=== PATIENT | female | born 1995 | race American Indian/Alaskan Native ===

== ENCOUNTER 2017-06-16 19:00 | Outpatient (CLI) | payer MEDICAID ==
[2017-06-16 19:44] VITALS: BP 118/70
--- NOTE | 2017-06-17 10:40 | Ultrasound Report ---
History: Decreased movement. Findings: Gestation: Single Amniotic Fluid: DIONNE = 13.6 cm Heart Rate: 153 BPM BIOPHYSICAL PROFILE: 2 - breathing movements 2 - movements 2 - posture and tone 2 - Qualitative amniotic fluid volume 8 - TOTAL SCORE OF POSSIBLE 8 Heart Rate (bpm) 166
--- NOTE | 2017-06-17 11:21 | Ultrasound Report ---
LIMITED OB ULTRASOUND: Decreased motion. Gestation: Santana DIONNE = 13.6 cm Heart Rate: 153 BPM Estimated gestational age 39 weeks 3 days.
== END 2017-06-16 22:40 | disposition home or self-care (01) ==
LOC: TRG 19:00 → LD 19:25 → TRG 22:40
PROVIDERS: ATTEND Obstetrics & Gynecology
DX: O36.8130 Decreased fetal movements, third trimester, not applicable or unspecified (principal); Z87.891 Personal history of nicotine dependence; Z3A.39 39 weeks gestation of pregnancy
CPT/HCPCS: 59025; 76815; 76819

== ENCOUNTER 2017-06-19 03:02 | Inpatient (IN) | payer MEDICAID ==
[2017-06-19] MEDS ORDERED: LACTATED RINGERS 1,000 ML ONE (03:29)
[2017-06-19] MEDS ORDERED: SUBLIMAZE IV PRN (04:35)
[2017-06-19] MEDS ORDERED: STADOL IV PRN (04:35)
[2017-06-19] MEDS ORDERED: POLYCILLIN/NS 2 GM/100 ML 2 GM/100 ML BAG IV ONE (04:40)
[2017-06-19] MEDS ORDERED: ePHEDrine SULFATE IV PRN (04:40)
[2017-06-19] MEDS ORDERED: MINERAL OIL PO PRN (04:40)
[2017-06-19] MEDS ORDERED: BRETHINE SUB-Q PRN (04:40)
[2017-06-19] MEDS ORDERED: BRETHINE IVP PRN (04:40)
[2017-06-19] MEDS ORDERED: XYLOCAINE 2% INFILTRATI ONE ×2 (04:40→07:10)
[2017-06-19] MEDS ORDERED: ZOFRAN IV PRN ×2 (04:40→07:36)
--- NOTE | 2017-06-19 04:44 | History and Physical Report ---
History of Present Illness Date of examination: 06/19/17 Date of admission: 06/19/17 03:29 Chief complaint: SROM History of present illness: Pt is a 22yo BF EDC 06/20/17; EGA 39 6/7 weeks presents to L&D complaining of RUC's q 3-4 mins after SROM clear fluid @ 0135. She received care at [facility], and course has been unremarkable. However records are not available and GBS is unknown. Past History Past Medical History: no pertinent history Past Surgical History: no surgical history Family/Genetic History: none Social history: no significant social history, single - Obstetrical History Expected Date of Delivery: 06/20/17 Actual Gestation: 39 Week(s) 6 Day(s) : 2 Medications and Allergies Allergies Allergy/AdvReac Type Severity Reaction Status Date / Time No Known Allergies Allergy Unverified 06/16/17 19:11 Home Medications Medication Instructions Recorded Confirmed Last Taken Type No Known Home Medications [No 06/19/17 06/19/17 Unknown History Reported Home Medications] Active Meds: Active Medications Butorphanol Tartrate (Stadol) 2 mg IV Q2H PRN PRN Reason: Labor Pain Ephedrine Sulfate (Ephedrine Sulfate) 10 mg IV Q2M PRN PRN Reason: Hypotension Stop: 06/19/17 04:45 Fentanyl (Sublimaze) 100 mcg IV Q2H PRN PRN Reason: Labor Pain Lactated Ringer's (Lactated Ringers) 1,000 mls @ 125 mls/hr IV DIRECT COLLIN Ampicillin Sodium (Polycillin/Ns 1 Gm/50 Ml) 1 gm in 50 mls @ 100 mls/hr IV Q4HR COLLIN PRN Reason: Protocol Ampicillin Sodium (Polycillin/Ns 2 Gm/100 Ml) 2 gm in 100 mls @ 100 mls/hr IV ONCE ONE PRN Reason: Protocol Stop: 06/19/17 05:39 Lactated Ringer's (Lactated Ringers) 1,000 mls @ 125 mls/hr IV DIRECT COLLIN Lidocaine (Xylocaine 2%) 20 ml INFILTRATI ONCE ONE Stop: 06/19/17 04:41 Mineral Oil (Mineral Oil) 30 ml PO QHS PRN PRN Reason: Constipation Ondansetron HCl (Zofran) 4 mg IV Q8H PRN PRN Reason: Nausea And Vomiting Review of Systems All systems: negative - Physical Exam Breasts: Positive: deferred Cardiovascular: Regular rate Lungs: Positive: Clear to auscultation Abdomen: Positive: normal appearance Genitourinary (Female): Positive: normal external genitalia Vagina: Positive: normal moisture Uterus: Positive: enlarged Extremities: Positive: normal - Obstetrical FHR: category 1 Uterine Contraction Monitor Mode: External Cervical Dilatation: 3 Cervical Effacement Percentage: 60 station: -1 Uterine Contraction Pattern: Irregular Uterine Tone Measurement Phase: Contraction Uterine Contraction Intensity: Moderate Results Result Diagrams: 06/19/17 04:15 All other labs normal. Assessment and Plan - Patient Problems (1) 39 weeks gestation of Onset Date: 06/19/17 Current Visit: Yes Status: Acute Plan to address problem: A: IUP @ 39 6/7 weeks in labor Unknown GBS P: Admit to L&D for expectant vaginal delivery IV Ampicillin
[2017-06-19] MEDS ORDERED: PITOCin/NS 30 UNIT/500ML 30 UNITS/500 ML BAG IV SCH ×2 (05:00)
[2017-06-19] MEDS ORDERED: LACTATED RINGERS 1,000 ML IV SCH ×2 (05:00)
[2017-06-19] MEDS ORDERED: PITOCin/NS 30 UNIT/500ML IV ONE (05:00)
[2017-06-19] MEDS ORDERED: PITOCin/NS 20 UNIT/1000ML DRIP 20 UNITS/1,000 ML BAG IV SCH ×2 (05:00→08:00)
[2017-06-19 06:11] LABS: Hematocrit 29.4 % (30.3-42.9); Hemoglobin 9.8 gm/dl (10.1-14.3); Mean Corpuscular HGB Conc 33 % (30-34); Mean Corpuscular Hemoglobin 31 pg (28-32); Mean Corpuscular Volume 93 fl (79-97); Platelet Count 256 K/mm3 (140-440); Red Blood Count 3.16 M/mm3 (3.65-5.03)
--- NOTE | 2017-06-19 07:32 | Procedure Note ---
OB Delivery Note - Delivery Date of Delivery: 06/19/17 Surgeon: KINDRA JAMES Estimated blood loss: 300cc - Vaginal Delivery presentation: vertex Delivery position: OA Intrapartum events: mult.variable deceleratio Delivery induction: none Delivery augmentation: rupture of membranes Delivery monitor: external FHT, external uterine Route of delivery: Delivery placenta: spontaneous Delivery cord: nuchal cord (x2), 3 umbilical vessels Episiotomy: none Delivery laceration: 2nd degree (perineal) Delivery repair: vicryl Anesthesia: local, intravenous Delivery comments: Infant delivered OA, tight nuchal cord x 2 reduced, and placed on mom's chest for [id number] bonding and delayed cord clamping. - Infant A at 1 minute: 8 at 5 minutes: 9 Infant Gender: Male (3059gms)
[2017-06-19] MEDS ORDERED: PHENERGAN PR PRN (07:36)
[2017-06-19] MEDS ORDERED: PHENERGAN PO PRN (07:36)
[2017-06-19] MEDS ORDERED: DULCOLAX PR PRN (08:00)
[2017-06-19] MEDS ORDERED: SODIUM CHLORIDE FLUSH SYRINGE 10 ML IV NR (08:00)
[2017-06-19] MEDS ORDERED: TYLENOL PO PRN (08:00)
[2017-06-19] MEDS ORDERED: BENADRYL PO PRN (08:00)
[2017-06-19] MEDS ORDERED: POLYCILLIN/NS 1 GM/50 ML 1 GM/50 ML BAG IV SCH (08:42)
[2017-06-19] MEDS ORDERED: PITOCin/NS 20 UNIT/1000ML DRIP IV ONE (09:00)
[2017-06-19 09:52] LABS: HIV-1 Antigen p24 Non React (Non React); HIVR-1/2 Ab Non React (Non React)
[2017-06-19] MEDS: TUCKS PAD TP PRN (09:56)
[2017-06-19] MEDS ORDERED: LANSINOH TP PRN (10:00)
[2017-06-19] MEDS ORDERED: NORCO 5/325 PO PRN (10:00)
[2017-06-19] MEDS: PRENATAL VITAMIN PO SCH (10:51)
[2017-06-19] MEDS: COLACE PO SCH ×2 (10:52→21:43)
[2017-06-19] MEDS: FEOSOL PO SCH ×2 (10:52→21:43)
[2017-06-19] MEDS: MOTRIN PO SCH ×2 (12:50→18:10)
[2017-06-19 19:51] LABS: Hematocrit 21.5 % (30.3-42.9); Hemoglobin 6.8 gm/dl (10.1-14.3)
[2017-06-19] MEDS ORDERED: MILK OF MAGNESIA PO PRN (22:00)
[2017-06-20] MEDS: MOTRIN PO SCH ×5 (00:34→18:20)
[2017-06-20] MEDS ORDERED: BOOSTRIX IM ONE ×2 (06:05→07:36)
--- NOTE | 2017-06-20 10:42 | Progress Note ---
Assessment and Plan - Patient Problems (1) 39 weeks gestation of Onset Date: 06/19/17 Current Visit: Yes Status: Resolved (2) (normal spontaneous vaginal delivery) Onset Date: 06/20/17 Current Visit: Yes Status: Resolved Plan to address problem: A: S/P - PPD #1 Doing well Asymptomatic anemia - stable P: May go home tomorrow (3) Acute blood loss anemia Onset Date: 06/20/17 Current Visit: Yes Status: Resolved Subjective - Subjective Date of service: 06/20/17 Principal diagnosis: s/p - PPD #1 Interval history: Pt is feeling well without complaints. Bleeding improved. She denies dizziness or SOB. Patient reports: appetite normal, voiding normally, pain well controlled, flatus , ambulating normally : doing well, nursing well Objective - Vital Signs Latest vital signs: Vital Signs Temp Pulse Resp BP BP Pulse Ox 06/20/17 07:31 98.4 F 87 18 121/79 98 06/20/17 06:15 16 06/20/17 01:34 16 06/20/17 00:34 16 06/20/17 00:00 98.2 F 76 20 130/72 06/19/17 20:05 98.2 F 76 18 122/68 06/19/17 16:04 98.8 F 78 20 120/78 06/19/17 12:50 18 Intake and Output 06/19/17 06/20/17 06/20/17 22:59 06:59 14:59 Intake Total 480 240 Output Total 500 Balance -20 240 Intake: Oral 480 240 Output: Urine 500 Void 500 Other: Total, Intake Amount 240 240 Total, Output Amount 500 # Voids Void 1 1 - Exam Breasts: Present: deferred Cardiovascular: Present: Regular rate Lungs: Present: Clear to auscultation Abdomen: Present: normal appearance, soft Uterus: Present: normal, firm, fundal height below umbilicus Extremities: Present: normal - Labs Labs: Abnormal lab results 06/19/17 Range/Units 19:04 Hgb 6.8 L D (10.1-14.3) gm/dl Hct 21.5 L D (30.3-42.9) % Laboratory Tests 06/19/17 06/19/17 06/19/17 04:15 04:15 04:15 WBC 8.0 RBC 3.16 L Hgb 9.8 L Hct 29.4 L MCV 93 MCH 31 MCHC 33 RDW 14.0 Plt Count 256 RPR Nonreactive Hep Bs Antigen HIV 1&2 Antibody Rapid HIV P24 Antigen Rubella IgG Antibody Blood Type B POSITIVE Antibody Screen TNR RIZWAN Antibody Screen Negative 06/19/17 06/19/17 06/19/17 08:37 08:37 08:37 WBC RBC Hgb Hct MCV MCH MCHC RDW Plt Count RPR Hep Bs Antigen Non-reactive HIV 1&2 Antibody Rapid Non react HIV P24 Antigen Non react Rubella IgG Antibody Immune Blood Type Antibody Screen RIZWAN Antibody Screen 06/19/17 19:04 WBC RBC Hgb 6.8 L D Hct 21.5 L D MCV MCH MCHC RDW Plt Count RPR Hep Bs Antigen HIV 1&2 Antibody Rapid HIV P24 Antigen Rubella IgG Antibody Blood Type Antibody Screen RIZWAN Antibody Screen
[2017-06-20] MEDS: FEOSOL PO SCH ×2 (10:54→22:08)
[2017-06-20] MEDS: PRENATAL VITAMIN PO SCH (10:54)
[2017-06-20] MEDS: COLACE PO SCH ×2 (10:54→22:08)
--- NOTE | 2017-06-20 11:51 | Discharge Summary ---
Providers - Providers Date of Admission: 06/19/17 03:29 Date of discharge: 06/21/17 Attending physician: KINDRA JAMES Primary care physician: KINDRA JAMES Hospitalization Reason for admission: rupture of membranes, IUP at term Delivery: Episiotomy: none Laceration: 2nd degree Other procedures: none complications: none Discharge diagnosis: IUP at term delivered baby: male Hospital course: Unremarkable. Condition at discharge: Good Disposition: DC-01 TO HOME OR SELFCARE - Discharge Diagnoses (1) 39 weeks gestation of Status: Resolved (2) (normal spontaneous vaginal delivery) Status: Resolved (3) Acute blood loss anemia Status: Resolved Plan - Discharge Medications Prescriptions: Ferrous Sulfate [Feosol 325 MG tab] 325 mg PO BID #60 tablet Ibuprofen [Motrin 600 MG tab] 600 mg PO Q6H #30 tablet Vit-Fe Fumar-FA [ Vitamin] 1 each PO QDAY #30 tablet - Provider Discharge Summary Activity: routine, no sex for 6 weeks, no heavy lifting 4 weeks, no strenuous exercise Diet: routine Instructions: routine Additional instructions: [] Smoking cessation referral if applicable(refer to patient education folder for contact #) [] Refer to [facility] Booklet Call your doctor immediately for: * Fever > 100.5 * Heavy vaginal bleeding ( >1 pad per hour) * Severe persistent headache * Shortness of breath * Reddened, hot, painful area to leg or breast * Drainage or odor from incision. * Keep incision clean and dry at all times and follow doctor's instructions regarding bathing/showering - Follow up plan Follow up: KINDRA JAMES MD [Primary Care Provider] - 6 Weeks
[2017-06-20] MEDS ORDERED: M-M-R II VACCINE SUB-Q ONE (12:00)
[2017-06-20] MEDS ORDERED: Fluarix Quad 2017-2018(36 MOS+) IM ONE (12:00)
[2017-06-20] MEDS: TUCKS PAD TP PRN (18:20)
[2017-06-21] MEDS: MOTRIN PO SCH ×2 (05:49→12:44)
[2017-06-21] MEDS ORDERED: BOOSTRIX IM ONE (06:00)
[2017-06-21] MEDS: FEOSOL PO SCH (12:45)
[2017-06-21] MEDS: COLACE PO SCH (12:46)
[2017-06-21] MEDS: PRENATAL VITAMIN PO SCH (12:51)
[2017-06-21] MEDS: TUCKS PAD TP PRN (16:13)
[2017-06-21 17:04] VITALS: BP 108/60
== END 2017-06-21 16:30 | disposition home or self-care (01) | DRG 775 ==
LOC: TRG 03:02 → LD 03:29 → OB 09:47
PROVIDERS: ADMIT Obstetrics & Gynecology; ATTEND Obstetrics & Gynecology
PROC: 10E0XZZ Delivery of Products of Conception, External Approach (ICD-10-PCS; principal; 2017-06-19)
PROC: 0KQM0ZZ Repair Perineum Muscle, Open Approach (ICD-10-PCS; 2017-06-19)
PROC: 3E0234Z Introduction of Serum, Toxoid and Vaccine into Muscle, Percutaneous Approach (ICD-10-PCS; 2017-06-20)
DX: O76 Abnormality in fetal heart rate and rhythm complicating labor and delivery (principal); D62 Acute posthemorrhagic anemia; Z3A.39 39 weeks gestation of pregnancy; Z37.0 Single live birth; O69.1XX0 Labor and delivery complicated by cord around neck, with compression, not applicable or unspecified; O70.1 Second degree perineal laceration during delivery; Z23 Encounter for immunization
CPT/HCPCS: 36415; 85014; 85018; 85027; 86592; 86706; 86762; 86850; 86900; 86901; 87806; 90686; 90715; 99211; A6250; G0463; J0290; J0595; J2590; J3010; J7120